=== PATIENT | female | born 1980 | race Hispanic/Latino ===

== ENCOUNTER 2017-08-03 06:30 | Observation (INO) | payer MEDICAID ==
[2017-08-02 12:15] VITALS: BP 101/62
[2017-08-02 12:26] LABS: BASOPHILS % (AUTO) 0.3 % (0.0-5.0); EOSINOPHILS % (AUTO) 1.5 % (0.0-8.0); HEMATOCRIT 31.6 % (36-48); LYMPHOCYTES % (AUTO) 23.9 % (21.0-51.0); MEAN CORPUSCULAR HEMOGLOBIN 29.6 pg (27.0-33.0); MEAN CORPUSCULAR HGB CONC 33.9 g/dL (32.0-36.0); MEAN CORPUSCULAR VOLUME 87.5 fL (79-99); MONOCYTES % (AUTO) 6.3 % (3.0-13.0); PLATELET COUNT (AUTO) 340 K/uL (130-400); RED BLOOD CELL COUNT(AUTO) 3.61 MIL/uL (4.00-5.50); RED CELL DISTRIBUTION WIDTH 12.7 % (11.0-15.5); WHITE BLOOD COUNT (AUTO) 11.2 K/uL (4.8-10.8)
[2017-08-03] VITALS (24 sets, daily range): BP systolic 97–126; BP diastolic 58–78
[~2017-08-03] VITALS: Ht 161.3 cm; Wt 90.5 kg
[~2017-08-03 06:30] MED LIST: PREN-64 PO
[2017-08-03] MEDS ORDERED: CEFAZOLIN SODIUM 1 GM VIAL ONE (08:09)
[2017-08-03] MEDS ORDERED: LACTATED RINGERS 1000ML 1,000 ML IV ONE (08:10)
[2017-08-03] MEDS ORDERED: WATER FOR INJECTION,STERILE 20 ML VIAL ONE (08:10)
[2017-08-03] MEDS ORDERED: FENTANYL CITRATE PF 50 MCG/1 ML 2ML VIAL ONE (09:47)
[2017-08-03] MEDS ORDERED: MEPERIDINE-PF 25 MG/ML SYG ONE (10:48)
[2017-08-03] MEDS ORDERED: PROMETHAZINE HCL 25 MG/ML 1ML AMPULE IM PRN ×2 (12:00)
[2017-08-03] MEDS ORDERED: MEPERIDINE-PF 75 MG/ML SYG IM PRN ×2 (12:00→14:45)
[2017-08-03] MEDS ORDERED: BISACODYL 10 MG SUPP.RECT RC PRN (12:00)
[2017-08-03] MEDS: DEXTROSE 5 %-0.45 % NACL 1,000 ML IV PRN ×2 (12:42→20:18)
[2017-08-03] MEDS: ACETAMINOPHEN-CODEINE 300/30MG TAB PO PRN ×2 (12:48→17:19)
[2017-08-03] MEDS: SIMETHICONE 80 MG TAB.CHEW PO PRN (21:23)
[2017-08-03] MEDS: DOCUSATE SODIUM 100 MG CAP PO PRN (21:23)
[2017-08-04] MEDS: ACETAMINOPHEN-CODEINE 300/30MG TAB PO PRN ×2 (02:36→09:32)
[2017-08-04 03:14] VITALS: BP 104/54
[2017-08-04] MEDS: DEXTROSE 5 %-0.45 % NACL 1,000 ML IV PRN (04:33)
[2017-08-04 06:25] LABS: HEMATOCRIT 28.8 % (36-48); MEAN CORPUSCULAR HEMOGLOBIN 29.5 pg (27.0-33.0); MEAN CORPUSCULAR HGB CONC 33.4 g/dL (32.0-36.0); MEAN CORPUSCULAR VOLUME 88.6 fL (79-99); PLATELET COUNT (AUTO) 283 K/uL (130-400); RED BLOOD CELL COUNT(AUTO) 3.25 MIL/uL (4.00-5.50); RED CELL DISTRIBUTION WIDTH 13.4 % (11.0-15.5); WHITE BLOOD COUNT (AUTO) 12.6 K/uL (4.8-10.8)
[2017-08-04] MEDS ORDERED: IBUPROFEN 800 MG TAB PO PRN (07:30)
[2017-08-04] MEDS ORDERED: HYDROCODONE/ACETAMINOPHEN 5/325 MG TAB PO PRN (07:30)
[2017-08-04] MEDS ORDERED: WATER FOR INJECTION,STERILE 20 ML VIAL IJ ONE (08:00)
[2017-08-04] MEDS ORDERED: CEFAZOLIN SODIUM 1 GM VIAL IVP ONE (08:00)
[2017-08-04 08:20] VITALS: BP 94/57
[2017-08-04] MEDS: DOCUSATE SODIUM 100 MG CAP PO PRN (09:31)
[2017-08-04 11:42] VITALS: BP 122/71
[2017-08-04] MEDS: SIMETHICONE 80 MG TAB.CHEW PO PRN (12:54)
[2017-08-04 15:16] VITALS: BP 110/71
== END 2017-08-04 17:10 | disposition home or self-care (01) ==
LOC: DAH 06:30 → WSH 06:31
PROVIDERS: ADMIT Obstetrics & Gynecology; ATTEND Obstetrics & Gynecology
DX: O34.82 Maternal care for other abnormalities of pelvic organs, second trimester (principal); O09.522 Supervision of elderly multigravida, second trimester; O09.42 Supervision of pregnancy with grand multiparity, second trimester; O99.012 Anemia complicating pregnancy, second trimester; D50.0 Iron deficiency anemia secondary to blood loss (chronic); O23.42 Unspecified infection of urinary tract in pregnancy, second trimester; Z3A.27 27 weeks gestation of pregnancy
CPT/HCPCS: 36415 ×2; 58662; 85025; 85027; 86850; 86900; 86901; 96372; A4344; A4452; A4649; G0378 ×35; J0690; J2175 ×2; J2550; J3010; J7120

== ENCOUNTER 2017-09-02 18:49 | Observation (INO) | payer MEDICAID ==
[~2017-09-02] VITALS: Ht 162.6 cm; Wt 93.0 kg
[2017-09-02 19:20] LABS: APPEARANCE,URINE Clear (CLEAR); BILIRUBIN,URINE Negative (NEGATIVE); COLOR,URINE Yellow (YELLOW); GLUCOSE, URINE (UA) Negative (NEGATIVE); KETONES,URINE 15 mg/dL (NEGATIVE); LEUKOCYTE ESTERASE ,URINE Negative (NEGATIVE); NITRATE,URINE Negative (NEGATIVE); OCCULT BLOOD,URINE Negative (NEGATIVE); PH,URINE 6.5 (5.0-8.0); PROTEIN,URINE Negative (NEGATIVE)
[2017-09-02] MEDS ORDERED: LACTATED RINGERS 1000ML 1,000 ML IV SCH (19:30)
== END 2017-09-02 21:25 | disposition home or self-care (01) ==
LOC: EDH 18:49 → LDH 18:50
PROVIDERS: ADMIT Obstetrics & Gynecology; ATTEND Obstetrics & Gynecology
DX: O60.02 Preterm labor without delivery, second trimester (principal); O26.892 Other specified pregnancy related conditions, second trimester; R68.83 Chills (without fever); R11.0 Nausea; O62.9 Abnormality of forces of labor, unspecified; Z3A.27 27 weeks gestation of pregnancy
CPT/HCPCS: 81003; 96360; 99285; G0378 ×3; J7120; 96361

== ENCOUNTER 2017-11-18 04:04 | Inpatient (IN) | payer MEDICAID ==
[~2017-11-18] VITALS: Ht 162.6 cm; Wt 100.7 kg
[2017-11-18] MEDS ORDERED: LACTATED RINGERS 1000ML 1,000 ML IV ONE ×2 (04:20→06:52)
[2017-11-18] MEDS ORDERED: OXYTOCIN 10 USP UNITS/ML ONE ×2 (04:21→06:53)
[2017-11-18] MEDS ORDERED: METHYLERGONOVINE MALEATE 0.2 MG/1 ML ML ONE (04:21)
[2017-11-18] MEDS ORDERED: LACTATED RINGERS 1000ML 1,000 ML IV PRN (04:25)
[2017-11-18] MEDS ORDERED: AMPICILLIN 2GM+NS 100ML 100 ML IV ONE (04:29)
[2017-11-18] MEDS ORDERED: MISOPROSTOL 200 MCG TABLET ONE (04:32)
[2017-11-18 04:35] LABS: HEMATOCRIT 37.8 % (36-48); MEAN CORPUSCULAR HEMOGLOBIN 27.7 pg (27.0-33.0); MEAN CORPUSCULAR VOLUME 84.1 fL (79-99); PLATELET COUNT (AUTO) 308 K/uL (130-400); RED CELL DISTRIBUTION WIDTH 14.6 % (11.0-15.5); WHITE BLOOD COUNT (AUTO) 13.2 K/uL (4.8-10.8)
[2017-11-18] MEDS ORDERED: PREN-196 PO (06:07)
[2017-11-18 06:08] VITALS: BP 121/59
[2017-11-18] MEDS ORDERED: LANOLIN 30GM OINTMENT TP PRN (06:15)
[2017-11-18] MEDS ORDERED: DIPH,PERTUSS(ACELL),TET VAC/PF 0.5 ML VIAL IM PRN (06:15)
[2017-11-18] MEDS ORDERED: ACETAMINOPHEN 325 MG TAB PO PRN (06:15)
[2017-11-18] MEDS: OXYTOCIN-LR 20 UNITS/1000 ML 1,000 ML IV SCH ×2 (06:19→06:57)
[2017-11-18] MEDS: IBUPROFEN 800 MG TAB PO PRN (07:37)
[2017-11-18 07:51] VITALS: BP 136/83
[2017-11-18] MEDS: DOCUSATE SODIUM 100 MG CAP PO SCH ×2 (09:40→21:06)
[2017-11-18 11:14] VITALS: BP 140/77
[2017-11-18] MEDS: LACTATED RINGERS 1000ML 1,000 ML IV SCH (12:15)
[2017-11-18 15:22] VITALS: BP 148/94
[2017-11-18] MEDS: IBUPROFEN 600 MG TABLET PO PRN (15:42)
[2017-11-18 19:24] VITALS: BP 150/93
[2017-11-19] VITALS (7 sets, daily range): BP systolic 125–146; BP diastolic 75–90
[2017-11-19] MEDS: IBUPROFEN 600 MG TABLET PO PRN ×2 (00:46→06:34)
[2017-11-19] MEDS: LACTATED RINGERS 1000ML 1,000 ML IV SCH (04:15)
[2017-11-19 05:20] LABS: HEMATOCRIT 33.3 % (36-48); MEAN CORPUSCULAR HEMOGLOBIN 27.8 pg (27.0-33.0); MEAN CORPUSCULAR HGB CONC 33.3 g/dL (32.0-36.0); MEAN CORPUSCULAR VOLUME 83.3 fL (79-99); PLATELET COUNT (AUTO) 274 K/uL (130-400); RED CELL DISTRIBUTION WIDTH 14.7 % (11.0-15.5); WHITE BLOOD COUNT (AUTO) 11.8 K/uL (4.8-10.8)
[2017-11-19 08:21] LABS: HEPATITIS Bs ANTIGEN SCREEN P Negative (Negative)
[2017-11-19] MEDS: DOCUSATE SODIUM 100 MG CAP PO SCH ×2 (08:36→20:47)
[2017-11-19] MEDS: IBUPROFEN 800 MG TAB PO PRN ×2 (08:43→18:10)
[2017-11-20 03:20] VITALS: BP 136/88
[2017-11-20 07:16] VITALS: BP 136/78
[2017-11-20] MEDS: DOCUSATE SODIUM 100 MG CAP PO SCH (08:03)
[2017-11-20 11:18] VITALS: BP 138/78
== END 2017-11-20 11:40 | disposition home or self-care (01) | DRG 560 ==
LOC: EDH 04:04 → LDH 04:05 → OBSVTOIN 04:25 → WSH 07:50
PROVIDERS: ADMIT Obstetrics & Gynecology; ATTEND Obstetrics & Gynecology
PROC: 10E0XZZ Delivery of Products of Conception, External Approach (ICD-10-PCS; principal; 2017-11-18)
PROC: 0HQ9XZZ Repair Perineum Skin, External Approach (ICD-10-PCS; 2017-11-18)
PROC: 3E0234Z Introduction of Serum, Toxoid and Vaccine into Muscle, Percutaneous Approach (ICD-10-PCS; 2017-11-18)
DX: O99.824 Streptococcus B carrier state complicating childbirth (principal); Z23 Encounter for immunization; O70.0 First degree perineal laceration during delivery; Z37.0 Single live birth; Z3A.38 38 weeks gestation of pregnancy
CPT/HCPCS: 36415; 85027; 86592; 86850; 86900; 86901; 87340; 90715; A4351; J0290; J2210; J2590; J7120